=== PATIENT | female | born 1950 | race Caucasian/White ===

== ENCOUNTER → 2017-01-15 | Outpatient (CLI) | payer OTHER ==
[~2017-01-15] MED LIST: CIPRO PO; CYMBALTA30 MG PO; DETROL LA PO; EFFEXOR XR PO; EVISTA60 MG PO; FLAGYL PO; K-DUR20 ME1 PO; LORTAB 5/500 TA1 TA1 PO; NO MEDICATIONS; PREMARIN VAGINAL; ULTRAM PO; VIBRAMYCIN100 M1 PO; ZOFRAN ODT4 MG/UDTAB PO
--- NOTE | ~2017-01-15 | MY11 ---
[facility] of [facility] RADIOLOGY TEXT RESULTS PATIENT: SARWAT LAWSON LOCATION: [facility] : 52 UNIT #: [id number] AGE: [address]: Lesvia Andrews SEX: F ORDER DR: [id number] [facility] [address] [place], [place] [address] [id number] O MR#: [id number] Acc #: [id number] NAME: SARWAT LAWSON : 1950 SEX: F STUDY DATE/TIME: 01/15/2017 9:14 UNIT: [facility] ROOM: STUDY DESCRIPTION: MY Mammogram Screening Dig Sincere Attending Physician: Lesvia Andrews P.A.-C.. Referring Physician: Lesvia Andrews P.A.-C.. Ordering Physician: Lesvia Andrews P.A.-C.. Primary Care Physician: Lesvia Andrews P.A.-C.. MEDICAL IMAGING REPORT This report is preliminary unless electronic signature is present EXAM Digital screening mammogram, 01/15/2017 HISTORY 66-year-old woman no risk elevation. Annual screening. COMPARISON Mammograms date to 08/30/2006 with most recent comparison 07/05/2015. FINDINGS Digital imaging of each breast was completed utilizing screening protocol. Review includes FDA-approved CAD device. Breast parenchyma is heterogeneously dense with residual fibronodular opacities projecting upper outer quadrants bilaterally. There is no interval occurring breast mass. There are no suspicious microcalcifications and no architectural deformity. IMPRESSION Negative mammogram. Annual screening recommended. Patients over the age of 40 are entered into a reminder system with target due date for the next mammogram. A result letter will also be sent to the patient. BIRADS: 1 Negative Dictated by... Kevin Coffey M.D. THIS IS AN ELECTRONICALLY VERIFIED REPORT Kevin Coffey M.D. at 01/15/2017 2:25 PM [facility] A [facility] of [facility] RADIOLOGY TEXT RESULTS PATIENT: SARWAT LAWSON LOCATION: [facility] : 52 UNIT #: [id number] AGE: [address]: Lesvia Andrews PAC SEX: F ORDER DR: TD: 01/15/2017 11:55 JOB #: [id number] MEDICAL IMAGING REPORT Page 1 of 1 COPY
== END | disposition home or self-care (01) ==
LOC: CWCC 08:55
DX: Z12.31 Encounter for screening mammogram for malignant neoplasm of breast (principal)
CPT/HCPCS: G0202